=== PATIENT | male | born 1960 ===

== ENCOUNTER → 2018-04-11 | Outpatient (REF) | payer BC ==
[2018-04-11 18:15] LABS: PLATELET COUNT, AUTOMATED 461 K/uL (150-450)
== END ==
LOC: ZZSENDIN 17:57
PROVIDERS: ATTEND Internal Medicine
DX: Z79.2 Long term (current) use of antibiotics (principal)
CPT/HCPCS: 82040; 82247; 82310; 82374; 82435; 82565; 82947; 84075; 84132; 84155; 84295; 84450; 84460; 84520; 85025; 86140

== ENCOUNTER → 2018-04-18 | Outpatient (REF) | payer BC ==
[2018-04-18 13:23] LABS: PLATELET COUNT, AUTOMATED 352 K/uL (150-450)
== END ==
LOC: ZZSENDIN 13:06
PROVIDERS: ATTEND Internal Medicine
DX: B95.61 Methicillin susceptible Staphylococcus aureus infection as the cause of diseases classified elsewhere (principal); Z79.2 Long term (current) use of antibiotics; M62.81 Muscle weakness (generalized); I10 Essential (primary) hypertension
CPT/HCPCS: 82040; 82247; 82310; 82374; 82435; 82565; 82947; 84075; 84132; 84155; 84295; 84450; 84460; 84520; 85025; 86140

== ENCOUNTER → 2018-05-02 | Outpatient (REF) | payer BC ==
[2018-05-02 15:30] LABS: PLATELET COUNT, AUTOMATED 261 K/uL (150-450)
== END ==
LOC: ZZSENDIN 15:06
PROVIDERS: ATTEND Internal Medicine
DX: M54.9 Dorsalgia, unspecified (principal); R78.81 Bacteremia
CPT/HCPCS: 82040; 82247; 82310; 82374; 82435; 82565; 82947; 84075; 84132; 84155; 84295; 84450; 84460; 84520; 85025; 86140

== ENCOUNTER → 2018-05-09 | Outpatient (REF) | payer BC ==
[2018-05-09 12:52] LABS: PLATELET COUNT, AUTOMATED 267 K/uL (150-450)
== END ==
LOC: ZZSENDIN 12:15
PROVIDERS: ATTEND Internal Medicine
DX: Z79.899 Other long term (current) drug therapy (principal)
CPT/HCPCS: 82040; 82247; 82310; 82374; 82435; 82565; 82947; 84075; 84132; 84155; 84295; 84450; 84460; 84520; 85025; 86140